=== PATIENT | female | born 1950 | race Caucasian/White ===

== ENCOUNTER → 2021-03-03 | Outpatient (CLI) | payer OTHER, BC | LOC: RAD 12:00 | PROVIDERS: ATTEND Internal Medicine | DX: R06.02 Shortness of breath (principal); M85.88 Other specified disorders of bone density and structure, other site; Z87.09 Personal history of other diseases of the respiratory system ==

== ENCOUNTER → 2021-03-10 | Outpatient (CLI) | payer OTHER, BC ==
[~2021-03-10] VITALS: Ht 167.6 cm; Wt 86.2 kg
[~2021-03-10] MED LIST: AZELASTINE205.5 MCG/ NARES; AZO BLADDER CO300 MG PO; BREO ELLIPTA 11 EACH INH; COENZYME Q10100 MG PO; CORTEF5 MG PO; COZAAR 25 MG TA25 M1 PO; CRESTOR5 MG PO; DEXAMETHAS10 MG/1 M2 IM; DHEA25 MG PO; GABAPENTIN600 M1 PO; GAS RELIEF80 MG PO; LAMICTAL100 MG PO; MELATONIN5 MG SUBLING; MUCINEX600 MG PO; MULTI VITAMIN1 EACH PO; NORVASC5 MG PO; PREDNISOLONE ACE5 ML LT. EYE; PREGNENOLONE1 GM PO; PROPRANOLOL 1010 MG PO; PROTONIX40 M2 PO; PROZAC20 M1 PO; SENNA PLUS TAB1 EACH PO; TIROSINT125 MCG PO; TRAVOPROST2.5 ML EA. EYE; VITAMIN C100 MG PO; VITAMIN D350 MCG PO; ZINC50 M3 PO
[2021-03-10 13:00] VITALS: BP 140/73
--- NOTE | 2021-03-10 14:17 | NUR ---
Pain Clinic Assessment: 1. History of Osteoarthritis: Not Applicable History of Rheumatoid Arthritis: Not Applicable 2. Height: 5 ft. 06 in. 167.6 cm. Weight: 190.0 lb. oz. 86.184 kg. Patient's BMI: 30.7 3. Vital Signs: BP: 140/73 Pulse: 64 Resp: 14 Temp: 02 Sat: 93 ECG Mon: 4. Pain Intensity: 7 5. Fall Risk: Dizziness: Y Needs help standing or walking: N Fallen in the last 3 months: Y Fall risk comments: 6. Patient on Blood Thinner: None 7. History of Hypertension: Y 8. Opioid Therapy greater than 6 weeks: Opiate Contract Signed: 9. Risk Assessment Tool Provided: 9 HIGH RISK 10. Functional Assessment Tool: 65/70 11. Recreational Drug Use: Never Drug Type: Tobacco Use: Never Smoker Tobacco Type: Amount or Packs/day: How Many Years: Alcohol Use: No Frequency: Quant:
== END ==
LOC: PAIN 11:04
PROVIDERS: ATTEND Anesthesiology Pain Medicine
DX: G89.4 Chronic pain syndrome (principal); M47.815 Spondylosis without myelopathy or radiculopathy, thoracolumbar region; R53.81 Other malaise; I10 Essential (primary) hypertension; F32.9 Major depressive disorder, single episode, unspecified; Z79.899 Other long term (current) drug therapy; Z79.891 Long term (current) use of opiate analgesic

== ENCOUNTER → 2021-03-27 | Outpatient (CLI) | payer OTHER, BC ==
[~2021-03-27] VITALS: Ht 167.6 cm; Wt 85.8 kg
[2021-03-27 13:07] VITALS: BP 140/64
--- NOTE | 2021-03-27 13:21 | NUR ---
Pain Clinic Assessment: 1. History of Osteoarthritis: Not Applicable History of Rheumatoid Arthritis: Not Applicable 2. Height: 5 ft. 6 in. 167.6 cm. Weight: 189.2 lb. oz. 85.821 kg. Patient's BMI: 30.6 3. Vital Signs: BP: 140/64 Pulse: 73 Resp: 16 Temp: 02 Sat: 96 ECG Mon: 4. Pain Intensity: 7 5. Fall Risk: Dizziness: Y Needs help standing or walking: N Fallen in the last 3 months: N Fall risk comments: 6. Patient on Blood Thinner: None 7. History of Hypertension: Y 8. Opioid Therapy greater than 6 weeks: Opiate Contract Signed: 9. Risk Assessment Tool Provided: 9 HIGH RISK 10. Functional Assessment Tool: 65/70 11. Recreational Drug Use: Never Drug Type: Tobacco Use: Never Smoker Tobacco Type: Amount or Packs/day: How Many Years: Alcohol Use: No Frequency: Quant:
== END ==
LOC: PAIN 08:18
PROVIDERS: ATTEND Anesthesiology Pain Medicine
DX: G89.29 Other chronic pain (principal); M54.9 Dorsalgia, unspecified; R53.81 Other malaise; F32.89 Other specified depressive episodes; Z68.30 Body mass index [BMI] 30.0-30.9, adult; Z79.891 Long term (current) use of opiate analgesic; Z79.899 Other long term (current) drug therapy

== ENCOUNTER → 2021-05-08 | Outpatient (CLI) | payer OTHER, BC ==
[~2021-05-08] VITALS: Ht 167.6 cm; Wt 86.0 kg
[2021-05-08 13:23] VITALS: BP 107/78
--- NOTE | 2021-05-08 13:47 | NUR ---
Pain Clinic Assessment: 1. History of Osteoarthritis: Not Applicable History of Rheumatoid Arthritis: Not Applicable 2. Height: 5 ft. 6 in. 167.6 cm. Weight: 189.6 lb. oz. 86.002 kg. Patient's BMI: 30.6 3. Vital Signs: BP: 107/78 Pulse: 69 Resp: 18 Temp: 02 Sat: 96 ECG Mon: 4. Pain Intensity: 7 5. Fall Risk: Dizziness: Y Needs help standing or walking: N Fallen in the last 3 months: N Fall risk comments: 6. Patient on Blood Thinner: None 7. History of Hypertension: Y 8. Opioid Therapy greater than 6 weeks: Opiate Contract Signed: 9. Risk Assessment Tool Provided: 9 HIGH RISK 10. Functional Assessment Tool: 65/70 11. Recreational Drug Use: Never Drug Type: Tobacco Use: Never Smoker Tobacco Type: Amount or Packs/day: How Many Years: Alcohol Use: No Frequency: Quant:
== END ==
LOC: PAIN 04-28 07:39
PROVIDERS: ATTEND Anesthesiology Pain Medicine
DX: G89.29 Other chronic pain (principal); M47.812 Spondylosis without myelopathy or radiculopathy, cervical region; M47.816 Spondylosis without myelopathy or radiculopathy, lumbar region; M41.86 Other forms of scoliosis, lumbar region; M41.84 Other forms of scoliosis, thoracic region; R53.81 Other malaise; F32.9 Major depressive disorder, single episode, unspecified; Z79.899 Other long term (current) drug therapy